=== PATIENT | male | born 1965 | race Caucasian/White ===

== ENCOUNTER 2019-12-09 16:24 | Emergency (ER) | payer BC, SELFPAY ==
--- NOTE | ~2019-12-09 | XR_ITS ---
EXAMINATION: XR chest 1V portable EXAM DATE: 12/09/2019 16:38 INDICATION: Dizzy spells/shortness of breath. TECHNIQUE: Portable AP frontal chest x-ray was obtained. Comparison is made to prior examination from 01/31/2020. FINDINGS: The lungs are clear. There are no pleural effusions. The cardiomediastinal silhouette is within normal limits. There is no pneumothorax suspected. The bones and soft tissues are unremarkab le. IMPRESSION: No acute cardiopulmonary findings. Reviewed, dictated and finalized at location A. [employer]
--- NOTE | 2019-12-09 16:26 | ECG_ITS ---
Measurements Intervals [place] Rate: 84 P: 2 [place]: 183 QRS: -7 QRSD: 102 T: 28 QT: 380 QTc: 450 Interpretive Statements SINUS RHYTHM VOLTAGE CRITERIA FOR LVH BASELINE ARTIFACT- II, III BORDERLINE ECG Electronically Signed On 12-09-2019 19:49:53 ZONING ENGINEER by Alfie Conte D.O.
[2019-12-09 16:27] VITALS: BP 158/92; PULSE 84; RESP 20; TEMP 36.5; O2SAT 99
[2019-12-09 16:44] LABS: Basophils Absolute Auto 0.1 K/mm3 (0.0-0.1); Basophils Percent Auto 0.8 % (0.2-1.2); Eosinophils Absolute Auto 0.2 K/mm3 (0-0.3); Eosinophils Percent Auto 1.8 % (0-4.4); Hemoglobin 16.5 g/dL (14.0-18.0); Immature Granulocyte Absolute 0.03 K/mm3 (0.00-0.031); Immature Granulocyte Percent A 0.3 % (0-0.5); Lymphocytes Absolute Auto 2.15 K/mm3 (0.9-3.2); Lymphocytes Percent Auto 24.7 % (18.3-44.2); Mean Corpuscular HGB Conc 33.7 g/dl (32-36); Mean Corpuscular Volume 92.1 fl (80-100); Mean Platelet Volume 10.9 fl (7.4-10.4); Monocytes Absolute Auto 0.6 K/mm3 (0.1-0.6); Monocytes Percent Auto 7.2 % (2.6-8.5); Neutrophils Absolute Auto 5.7 K/mm3 (1.3-6.7); Neutrophils Percent Auto 65.2 % (45.5-73.1); Platelet Count Result 244 k/mm3 (150-375); Red Blood Count 5.32 M/mm3 (4.6-6.20); Red Cell Distribution Width 13.5 % (11.5-14.5); White Blood Count 8.7 K/mm3 (4.5-10.0)
[2019-12-09 16:54] LABS: INR 0.9; Prothrombin Time 11.8 Seconds (11.1-14.7)
[2019-12-09 16:55] LABS: Blood Urea Nitrogen 28 mg/dL (9-20); Calcium 9.3 mg/dL (8.4-10.2); Carbon Dioxide 26 mmol/L (22-30); Chloride 100 mmol/L (98-107); Estimated CRCL calculation 72 ml/min; Estimated Glomerular Filt Rate 57; Glucose 111 mg/dL (75-110); Partial Thromboplastin Time 26.2 SECONDS (22.3-36.8); Potassium 3.5 mmol/L (3.4-5.0); Sodium 139 mmol/L (137-145)
[2019-12-09 17:06] LABS: Troponin I < 0.012 ng/mL (0.000-0.034)
[2019-12-09 17:26] VITALS: BP 157/101; PULSE 85; PULSE 86; RESP 16; RESP 18; TEMP 36.6; O2SAT 94
[2019-12-09 17:33] VITALS: BP 157/101; PULSE 75; RESP 23; O2SAT 95
--- NOTE | 2019-12-09 17:37 | ED.NEUROSD ---
HPI - Neuro Symptoms/Deficit General Chief Complaint: Suspected CVA Stated Complaint: sent from imaging center, cva? Time Seen by Provider: 12/09/19 17:35 Source: patient and RN notes reviewed Mode of arrival: ambulatory Limitations: no limitations History of Present Illness HPI Narrative: Pt is a 54 y/o male presenting to the ED c/o possible CVA. Pt reports he had the results of an MRI today and was instructed by his Neurologist at [facility], Dr. Murrieta, to present to the nearest ED. Pt reports he has been experiencing dizziness for a year that has increased in frequency to about 2 to 3 times per week as of the past 2 weeks, and also reports nausea and hot flashes, but denies weakness, numbness, tingling, DURON, or vomiting. Pt states he only takes medication for HTN, and denies a Hx of DM, HLD, or smoking. MR Brain WO contrast taken at [facility] on 12/09/2019. IMPRESSION by Radiologist Eric Mar: 1. Acute small left thalamic stroke. 2. Patchy areas of signal alteration in the periventricular white matter suggesting chronic microvascular change/gliosis. Other items on the differential would include demyelinating process, post inflammatory, infectious or toxic exposures. Please correlate clinically. MRA Head WO contrast taken at [facility] on 12/09/2019. IMPRESSION by Radiologist Hiram Worthy: 1. 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 Onset (ago): unknown Quality: weak (Dizziness) and other On Anticoagulants: No Associated symptoms: nausea/vomiting (Nausea, no vomiting) and other (Dizziness; hot flashes) Treatments Prior to Arrival: none Related Data Home Medications Medication Instructions Recorded Confirmed naproxen sodium 220 mg tablet 220 mg PO DAILY PRN tablet 11/11/19 Allergies Allergy/AdvReac Type Severity Reaction Status Date / Time No Known Allergies Allergy Unverified 11/11/19 09:24 Review of Systems Review of Systems: All systems reviewed & are unremarkable except as noted in HPI and below Constitutional: Constitutional: Reports other (Hot flashes) Gastrointestinal: Gastrointestinal: Reports nausea and Denies vomiting Neurologic: Reports dizziness, Denies headache(s), Denies numbness, Denies tingling and Denies weakness PMFSH Past Medical History Medical History Arthritis Chronic neck pain Essential (primary) hypertension Hypertension Surgical History Surgical History History of hernia surgery 2000 [place] teeth extracted age mid 20's Family History Family History Father Hypertension Mother Hypertension COPD (chronic obstructive pulmonary disease) Social History Social History Smoking status: Never smoker Second hand tobacco smoke exposure: Yes (occasionally) Alcohol intake: current Substance use: never Substance use type: does not use Gender identity (if verbalized by the patient): Male Exam Narrative: Exam Narrative: General appearance: Well-developed, well-nourished Skin: Normal color Head: Normocephalic, nontraumatic Eyes: Clear conjunctiva ENT: Oropharynx normal, ears normal, nose normal Neck: Supple, nontender Chest and respiratory: Airway patent, no respiratory distress, no accessory muscle use Heart: Regular rate/rhythm Abdomen: Soft, nontender, no organomegaly, quiet bowel sounds Vascular: Normal peripheral pulses, normal capillary refill. Musculoskeletal: Normal range of motion, nontender back Neurologic: Alert and oriented ?3, TRUCK RENTAL MANAGER is normal as tested, no gross motor deficit
[2019-12-09 17:43] LABS: Glucose Point of Care 116 (65-105)
[2019-12-09 18:42] VITALS: BP 138/88; PULSE 72; RESP 19; O2SAT 100
== END 2019-12-09 18:42 | disposition home or self-care (01) ==
PROVIDERS: Emergency Provider Emergency Medicine; PCP Family Medicine
DX: I63.9 Cerebral infarction, unspecified (principal); I10 Essential (primary) hypertension; M19.90 Unspecified osteoarthritis, unspecified site; R94.31 Abnormal electrocardiogram [ECG] [EKG]
CPT/HCPCS: 36415; 71045; 80048; 82948; 84484; 85025; 85610; 85730; 93005; 99284

== ENCOUNTER 2020-01-10 13:05 | Outpatient (CLI) | payer BC, SELFPAY ==
--- NOTE | 2020-01-10 | ECHO_ITS ---
Patient Info Name: Demetris Moore Age: 54 years : 1965 Gender: Male Ht: 71 in Wt: 242 lbs BSA: 2.38 m2 HR: 65 bpm BP: 140 / 95 mmHg Heart Rhythm: Sinus Rhythm Technical Quality: Good Exam Date: 01/10/2020 1:58 PM Exam Location: [facility] Patient Status: Outpatient Admit Date: 01/10/2020 Staff Ordering Physician: Lit, Rich Palafox MD Maintenance Helper: Demetris Patel RDCS Attending Provider: Lit, Rich Palafox MD Referring Physician: Lit CARR; Exam Type: CA echo doppler color flow Study Info Indications 436.0 - CVA Complete two-dimensional, color flow and Doppler transthoracic echocardiogram is performed. Strain analysis performed. History/Risk Factors CVA and Dizziness. Summary 1. Left ventricular chamber dimension is normal. 2. Left ventricular systolic function is normal, estimated at 60-65%. 3. There is moderately increased left ventricular wall thickness. 4. The left ventricular diastolic function is abnormal. 5. E/e' 12 is mildly elevated. 6. Global longitudinal strain is mildly abnormal at -15.8%. 7. There is trace mitral valve regurgitation. 8. No pulmonary hypertension, estimated pulmonary arterial systolic pressure is 30 mmHg. 9. There is trace pulmonic regurgitation. 10. The aortic root size at the sinus of Valsalva is borderline dilated at 4.1 cm. Left Ventricle E/e' 12 is mildly elevated. Global longitudinal strain is mildly abnormal at -15.8%. Left ventricular chamber dimension is normal. Left ventricular systolic function is normal, estimated at 60-65%. There is moderately increased left ventricular wall thickness. The left ventricular diastolic function is abnormal. Right Ventricle Right ventricular chamber dimension is normal. Right ventricular systolic function is normal. Left Atria Left atrial chamber dimension is normal. Right Atria Right atrial chamber dimension is normal. Aortic Valve The aortic valve is probable trileaflet. There is no aortic valve stenosis. There is no aortic valve regurgitation. Pulmonic Valve There is trace pulmonic regurgitation. Mitral Valve There is no mitral valve stenosis. There is trace mitral valve regurgitation. Tricuspid Valve There is no tricuspid valve regurgitation. No pulmonary hypertension, estimated pulmonary arterial systolic pressure is 30 mmHg. Pericardium/Pleural There is no pericardial effusion. Inferior Vena Cava Normal inferior vena cava with >50% collapse upon inspiration consistent with normal right atrial pressure, 5 mmHg. Aorta The aortic root size at the sinus of Valsalva is borderline dilated at 4.1 cm. Left Ventricular Outflow Tract Name Value Normal LVOT 2D LVOT Diameter 1.9 cm LVOT Doppler LVOT Peak Gradient 4 mmHg LVOT Mean Gradient 2 mmHg LVOT VTI 22 cm LVOT VTI/AV VTI Ratio 0.8 LVOT Stroke Volume 61 ml LVOT CO 4.1 l/min LVOT CI
--- NOTE | ~2020-01-10 | US_ITS ---
EXAMINATION: US carotid duplex BI DATE: 01/10/2020 13:44 INDICATION: Cerebrovascular accident. Dizziness. TECHNIQUE: Grayscale, color Doppler, and pulsed Doppler images of the cervical carotid arteries were obtained. The degree of vessel stenosis is placed in one of the following categories: normal, <50%, 5 0-69%, >=70% but less than near-occlusion, near-occlusion, or total occlusion. Note that percent sten osis relative to normal distal artery lumen diameter is indirectly measured from velocity measurement s as described by Juarez, et al. Radiology 2003; 229:340-346. COMPARISON: None. FINDINGS: RIGHT: The right common carotid artery (CCA) peak systolic velocity (PSV) is 86 cm/s. The right internal car otid artery (ICA) PSV is 56 cm/s. The right ICA end-diastolic velocity (EDV) is 20 cm/s. The right IC A/CCA PSV ratio is 0.7. Grayscale and color Doppler images yield an estimate of <50% diameter reducti on from plaque in the ICA. There is antegrade flow in the right vertebral artery. LEFT: The left CCA PSV is 101 cm/s. The left ICA PSV is 74 cm/s. The left ICA EDV is 29 cm/s. The left ICA/ CCA PSV ratio is 0.7. Grayscale and color Doppler images yield an estimate of <50% diameter reduction from plaque in the ICA. There is antegrade flow in the left vertebral artery. IMPRESSION: 1. <50% stenosis in the right internal carotid artery. 2. <50% stenosis in the left internal carotid artery. Reviewed, dictated and finalized at location A.
--- NOTE | 2020-01-12 18:40 | WPDHOLTEREM ---
Holter/Event Monitor Holter/Event Monitor Date of procedure: 01/10/20 Procedure Type: 24 hour Holter monitor Diagnosis: Dizziness, HTN,recent stroke Indications: Dizziness, HTN, recent stroke Image/Tracing Quality: Good Finding: the patient was monitored for 20 hours. The underlying rhythm was sinus with a minimum heart rate of 57 beats per minute, average heart rate of 88 beats per minute maximum rate of 153 beats per minute. There were no PVCs seen. For APCs were seen. There is no atrial fibrillation, SVT, ventricular tachycardia, pauses or heart block. No symptoms were recorded. . Conclusion: Unremarkable Holter monitor No atrial fibrillation seen
== END 2020-01-10 13:06 | disposition home or self-care (01) ==
PROVIDERS: PCP Family Medicine; Visit Provider Psychiatry & Neurology Neurology
DX: I63.549 Cerebral infarction due to unspecified occlusion or stenosis of unspecified cerebellar artery (principal); R42 Dizziness and giddiness; Z79.899 Other long term (current) drug therapy; I65.23 Occlusion and stenosis of bilateral carotid arteries; R93.1 Abnormal findings on diagnostic imaging of heart and coronary circulation
CPT/HCPCS: 93225; 93226; 93306; 93880

== ENCOUNTER 2022-05-15 12:03 | Outpatient (CLI) | payer BC, SELFPAY ==
--- NOTE | 2022-05-15 | ECG_ITS ---
Measurements Intervals [place] Rate: 66 P: -11 [place]: 190 QRS: -4 QRSD: 105 T: 17 QT: 420 QTc: 442 Interpretive Statements SINUS RHYTHM VOLTAGE CRITERIA FOR LVH BORDERLINE ECG Electronically Signed On 05-15-2022 13:00:48 CDT by Alfie Conte D.O.
[2022-05-15 12:36] LABS: Hematocrit 45.5 % (42.0-52.0); Hemoglobin 14.9 g/dL (14.0-18.0)
[2022-05-15 12:49] LABS: Albumin Level 4.2 g/dL (3.5-5.1); Estimated Glomerular Filt Rate 52; Glucose 95 mg/dL (65-110)
[2022-05-15 12:50] LABS: Urine Cotinine NEGATIVE
[2022-05-15 13:17] LABS: Hemoglobin A1C 5.5 % (<5.7)
== END 2022-05-15 12:04 | disposition home or self-care (01) ==
PROVIDERS: PCP Family Medicine; Visit Provider Orthopaedic Surgery
DX: Z01.818 Encounter for other preprocedural examination (principal); M17.12 Unilateral primary osteoarthritis, left knee
CPT/HCPCS: 80307; 82040; 82565; 82947; 83036; 85014; 85018; 93005

== ENCOUNTER 2022-07-17 09:50 | Outpatient (CLI) | payer BC, SELFPAY ==
[2022-07-17 11:03] LABS: Basophils Absolute Auto 0.1 K/mm3 (0.0-0.1); Basophils Percent Auto 0.8 % (0.2-1.2); Eosinophils Absolute Auto 0.1 K/mm3 (0-0.3); Eosinophils Percent Auto 1.9 % (0-4.4); Hematocrit 47.8 % (42.0-52.0); Immature Granulocyte Absolute 0.01 K/mm3 (0.00-0.031); Immature Granulocyte Percent A 0.1 % (0-0.5); Lymphocytes Absolute Auto 1.63 K/mm3 (0.9-3.2); Lymphocytes Percent Auto 21.6 % (18.3-44.2); Mean Corpuscular HGB Conc 33.5 g/dl (32-36); Mean Corpuscular Hemoglobin 31.6 pg (26-34); Mean Corpuscular Volume 94.5 fl (80-100); Mean Platelet Volume 10.6 fl (7.4-10.4); Monocytes Absolute Auto 0.5 K/mm3 (0.1-0.6); Monocytes Percent Auto 6.9 % (2.6-8.5); Neutrophils Absolute Auto 5.2 K/mm3 (1.3-6.7); Neutrophils Percent Auto 68.7 % (45.5-73.1); Platelet Count Result 236 k/mm3 (150-375); Red Blood Count 5.06 M/mm3 (4.6-6.20); Red Cell Distribution Width 13.9 % (11.5-14.5); White Blood Count 7.5 K/mm3 (4.5-10.0)
[2022-07-17 11:11] LABS: Albumin Level 4.1 g/dL (3.5-5.1)
[2022-07-17 11:14] LABS: Anion Gap 11 mmol/L (8-16); Blood Urea Nitrogen 21 mg/dL (9-20); Calcium 8.9 mg/dL (8.4-10.2); Carbon Dioxide 25 mmol/L (22-30); Chloride 107 mmol/L (98-107); Estimated Glomerular Filt Rate 52; Glucose 121 mg/dL (65-110); Potassium 3.5 mmol/L (3.4-5.0); Sodium 143 mmol/L (137-145)
[2022-07-17 12:01] LABS: Urine Cotinine NEGATIVE
== END 2022-07-17 09:51 | disposition home or self-care (01) ==
PROVIDERS: Anesthesiology; PCP Family Medicine; Visit Provider Orthopaedic Surgery
DX: M17.12 Unilateral primary osteoarthritis, left knee (principal); Z79.899 Other long term (current) drug therapy; Z01.818 Encounter for other preprocedural examination
CPT/HCPCS: 36415; 80048; 80307; 82040; 85025; 87081

== ENCOUNTER 2022-08-06 00:42 | Day surgery (SDC) | payer BC, SELFPAY ==
--- NOTE | 2022-07-17 09:58 | PC.NURSE ---
PRE-OP INSTRUCTIONS, PLEASE READ CAREFULLY Report to the Outpatient Waiting Room, entrance under the green pavilion located off [facility], at time _0600_ on date _08/06/22_. OR Time: _0730_. PACK A SMALL OVERNIGHT BAG AND LEAVE IN THE CAR ALONG WITH YOUR WALKER Time changes happen often and if your time is changed the preop area will call you the afternoon before. - You and your visitor will be asked to self-screen and do not enter if you have any COVID symptoms. - A mask is required within the hospital. - Only one visitor and NO children visitors are allowed at this time. - The patient visitor is requested to leave or wait in car when not with patient due to restrictions. - VISITING HOURS 10AM-8PM, PARK IN FRONT PARKING LOT AND USE HOSPITAL ENTRANCE 1 Patients may have clear liquids (water, carbonated beverages, clear teas, apple juice) until 3 hours prior to surgery (0430 AM) with a maximum of 20 ounces. - No food from midnight until time of surgery Take the following medications with a SIP of water the morning of surgery: _AMLODIPINE, METOPROLOL_ Medications to discontinue per DR. ROCKWELL - _ASPIRIN 7 DAYS PRIOR TO SURGERY, Date to take last dose 07/29/22_ Please no make-up, nail syriac, hairspray, perfume, deodorant, or body powder the day of surgery. No jewelry (including any body piercings) or valuables the day of surgery, leave them at home. Please take a shower or bath the night before, or the morning of, surgery with an antibacterial soap. Wear comfortable, loose fitting clothing. - Jewelry must be removed prior to entering the operating room. Rings and piercings that are not removed may be cut off. - The hospital will not accept responsibility for valuables. - Please leave all valuables, including medications, at home the day of surgery. If you are going home after surgery, a licensed lifter driver must drive you home. - NO public transportation without another adult. - We recommend that an adult stay with you for 24 hours following discharge. - We also recommend that you do not drive, make important decision, drink alcoholic beverages, or take any drugs that were not prescribed by your health care provider for at least 24 hours after your discharge time. Follow any additional instructions given to you from your surgeon. TOTAL JOINT CLASS 07/24/22 @ 1000 AM [facility], PARK IN FRONT PARKING LOT AND USE HOSPITAL ENTRANCE 2 - LOWER LEVEL If you or anyone in your household have experienced Covid symptoms in the past week, please notify your surgeon or the nurse liaison at the phone number below for possible testing. Telephone instructions given to ___PT and asked if any additional questions and then verbalized understanding. Patient advised to call surgeon office or pre surgery nurse liaison [phone] if any additional questions.
[2022-07-17 10:15] VITALS: BP 118/80; PULSE 92; RESP 20; TEMP 37.3; O2SAT 96; BMI 35.3
--- NOTE | 2022-08-05 12:39 | WPDANESPNB ---
Anes - Peripheral Nerve Block Date/Time: 08/05/22 12:39 I have discussed with the patient/family/POA the placement of a peripheral nerve block for post-operative pain management, including associated risks, benefits, complications, and side effects. Alternative methods of post-operative analgesia were detailed. Questions were solicited and answers provided to the satisfaction of the patient/family/POA. Time-Out: A pre-procedural Time-Out was completed immediately before starting the procedure and confirmed: Patient Identification, Site, Procedure, Patient Position and the Availability of Requisite Equipment. Clinical Indications: Acute post-operative pain management requested by the operative surgeon. Nerve Block Insertion Note Anes-nerve block: adductor canal Patient position: supine Skin prep: chlorhexidine Needle: 22 gauge, stimulating, insulated echogenic needle. Needle length: 80 mm Technique: ultrasound Technique comment: in plane Injectate: bupivacaine 0.5% with epi 5 mcg/ml (30cc) Observations: tolerated well Complications: none Procedure start time:: 720 Procedure end time:: 725
--- NOTE | 2022-08-05 12:39 | WPDANESEPPF ---
Anes - Initial Pre Proc Eval Procedure: Operation Date: 08/06/22 07:30 Proposed Procedures p Left Total Knee Arthroplasty - Zen Trejo MD Date/Time: 08/05/22 12:39 Surgeon: Zen Trejo MD Pre Op Diagnosis: primary oa left knee Patient Data Age: 57 Gender: M Height: 1.8 m Weight: 115 kg Last Vital Signs Temp 37.3 C 07/17/22 10:15 Pulse 92 07/17/22 10:15 Resp 20 07/17/22 10:15 BP 118/80 07/17/22 10:15 Pulse Ox 96 07/17/22 10:15 O2 Del Method Room Air 07/17/22 10:15 Allergies Allergy/AdvReac Type Severity Reaction Status Date / Time No Known Allergies Allergy Verified 08/06/22 06:21 Home Medications Medication Instructions Recorded Confirmed Type aspirin 325 mg tablet 325 mg PO DAILY #30 tabs 12/09/19 08/06/22 Rx amlodipine 10 mg tablet 10 mg PO DAILY #90 tabs 02/27/22 08/06/22 Rx losartan 100 1 tablet PO DAILY #90 tabs 02/27/22 08/06/22 Rx mg-hydrochlorothiazide 25 mg tablet metoprolol succinate 50 mg 50 mg PO DAILY #90 tabs 04/03/22 08/06/22 Rx tablet,extended release 24 hr doxazosin 4 mg tablet 4 mg QAM 07/17/22 08/06/22 History Patient hx anesthesia problems: none Family hx anesthesia problems: none Results Review: All pre-operative results and documents have been reviewed as part of the pre-operative evaluation. [facility] Past Medical History Medical History (Updated 08/05/22 @ 12:40 by Haja Osorio MD) BPH (benign prostatic hyperplasia) Chronic neck pain Essential (primary) hypertension History of ischemic vertebrobasilar artery thalamic stroke Obesity Osteoarthritis TIA (transient ischemic attack) Vitamin D deficiency Surgical History Surgical History History of hernia surgery 1999 right inguinal hernia repair [place] teeth extracted age mid 20's Family History Family History Father Hypertension Mother Hypertension COPD (chronic obstructive pulmonary disease) Social History Social History Smoking status: Never smoker Second hand tobacco smoke exposure: Yes (OCCASIONALLY WHEN OUT WITH FRIENDS) Additional smoking assessment comments: PT DENIES ALL FORMS OF TOBACCO USE Alcohol intake: current Drinks per week: 6 Alcohol use details: consumes 3/4 beers, twice a week Substance use: never Substance use type: does not use Living arrangements: alone Gender identity (if verbalized by the patient): Male Spiritual care concerns: No Agree to blood products: Yes Anes - Eval Final PreProcedure Day of Procedure 08/05/22 12:39 Patient weight: obese Heart: regular rate and rhythm Lungs: clear to auscultation and normal air movement Airway: Mallampati scale class II Neurological: alert and oriented Last oral intake: >/= 8 hours ASA classification: III Emergent: no Anesthetic plan: proceed Anesthesia type and monitoring: general LMA Results Review: All pre-operative results and documents have been reviewed as part of the pre-operative evaluation. Informed Consent: The patient's anesthetic plan and its attendant risks and benefits were discussed with the patient/family/POA. Questions were solicited and answers provided to the satisfaction of the patient/family/POA.
[2022-08-06] VITALS (13 sets, daily range): BP systolic 102–169; BP diastolic 75–114; PULSE 72–88; RESP 15–20; TEMP 35.9–37.2; O2SAT 94–98
--- NOTE | ~2022-08-06 | XR_ITS ---
EXAMINATION: XR knee LT 2V DATE: 08/06/2022 09:55 INDICATION: Postoperative evaluation following left total knee arthroplasty. TECHNIQUE: Anteroposterior and lateral views of the left knee were obtained. COMPARISON: 01/14/2022 FINDINGS: Left total knee arthroplasty with patellar resurfacing appears well seated and in near anatomic align ment. No fractures identified. Expected postoperative subcutaneous and intra-articular gas. IMPRESSION: 1. Left total knee arthroplasty, negative for postoperative purposes. Reviewed, dictated and finalized at location A.
[2022-08-06] MEDS: LACTATED RINGERS 1,000 ML 30 ML IV CONT ×2 (06:35→09:36)
[2022-08-06] MEDS: ACETAMINOPHEN 500 MG TABLET 1000 MG PO (06:40)
[2022-08-06] MEDS: TRANEXAMIC ACID 1,000MG/ISO100 1,000 MG/100 ML BAG 200 MG IVPB (06:40)
--- NOTE | 2022-08-06 07:22 | WPDHPUPDATE1 ---
History and Physical Update Update Date/Time: 08/06/22 07:22 History and Physical has been reviewed, including an updated exam of the patient. There are NO changes in the patient's condition. Risks, benefits, and alternatives have been discussed and questions answered. Patient agrees to proceed with procedure.
[2022-08-06] MEDS: ceFAZolin 2 GM/D5W 50 ML 2 GM/50 ML BAG IVPB ×3 (07:34→23:07)
[2022-08-06] MEDS: GENTAMICIN BONE CEMENT REFOBACIN 1 EACH TOPICAL (08:08)
--- NOTE | 2022-08-06 10:51 | ADMGEN ---
This patient, Demetris Moore, was admitted to -. Patient/family oriented to hospital policies and general routines including ID bracelet, bed and alarms, visiting hours, pain management, procedures, bathroom and other care routines, personal items, smoking policy, room service/diet, and visiting hours. Information on how to activate the Rapid Response Team has been discussed. Patient/Family are encouraged to report perceived risks to care and to ask questions if they do not understand what they are told or what they should do.
[2022-08-06] MEDS: METOPROLOL SUCCINATE EXT REL 50 MG TABCR PO (12:17)
[2022-08-06] MEDS: polyethylene glycoL 3350 17 GM POWD.PACK PO (12:17)
[2022-08-06] MEDS: SENNA/DOCUSATE SODIUM TABLET 2 TAB PO ×2 (12:18→21:08)
[2022-08-06] MEDS: ASPIRIN 325 MG TABLET PO (12:18)
[2022-08-06] MEDS: LOSARTAN POTASSIUM 100 MG TABLET PO (12:18)
[2022-08-06] MEDS: amLODIPine BESYLATE 5 MG TABLET 10 MG PO (12:18)
[2022-08-06] MEDS: DOXAZOSIN MESYLATE 4 MG TABLET PO (12:18)
[2022-08-06] MEDS: FAMOTIDINE 20 MG TABLET PO ×2 (12:18→21:08)
[2022-08-06] MEDS: hydroCHLOROthiazide 25 MG TABLET PO (12:18)
[2022-08-06] MEDS: oxyCODONE HCL (*CRX) 5 MG TAB IR PO (13:47)
--- NOTE | 2022-08-06 16:04 | W.PM.PROC2 ---
Procedure Note - Detailed Date of Procedure 08/06/22 Pre-op Diagnosis primary oa left knee Post-op Diagnosis Same Procedure Performed Total knee arthroplasty, left knee. Surgeon Zen Trejo MD Weekend Receptionist Louann Rodriguez PA-C Anesthesia General and Regional (subsartorial block) Description of Procedure The patient was given a nerve block preoperatively, and then brought to the operating room. A general anesthetic was administered. The leg was prepped and draped in the usual sterile fashion. The limb was elevated and the tourniquet inflated to 300 mmHg during initial exposure, and cementation. A longitudinal incision was created along the medial border of the patella and patellar tendon, and a trivector approach to the knee was performed. A moderate medial release was taken. The knee was then flexed. The osteophytes were carefully removed. The intramedullary guide was placed in the femoral canal. The distal femoral resection was then taken with the oscillating saw. The collateral ligaments were carefully protected. The tibia was carefully exposed. The jig was applied, and the proximal tibia was resected according to preoperative plan. The knee was balanced in extension. Appropriate releases were taken where needed. The anterior cruciate ligament and meniscal remnants were removed. The posterior cruciate ligament was preserved. The patella was measured. Patellar resection was carried out with the oscillating saw. The lug holes drilled. The femur was sized and rotation assessed using a combination of gap balancing, posterior referencing, and the AP axis. The 4 in 1 cutting block was used to finish the femoral cuts after equal gaps were assured. The lug holes were drilled. The osteophytes were carefully removed from the back of the knee. The knee was copiously irrigated with antibiotic solution periodically throughout the procedure. The meniscal remnants were removed. The spacer block was used to confirm equal flexion and extension gaps. Further releases were performed as needed. The tibia was sized and broached. The bony surfaces were prepared for cementing with pulsatile lavage. The real tibial component was cemented into position followed by press fitting the femoral component. Excess cement was carefully removed. The patella component was press-fit. Patellar tracking was carefully assessed. No additional releases were required. The wound was closed with #1 Vycril suture, #2 Quill suture, 0-Quill suture, and 2-0 Quill suture followed by Steri-Strips. A sterile bulky dressing was applied. Meticulous hemostasis was maintained throughout the procedure. There were no complications. The patient was extubated and brought to the recovery room in stable condition after the application of sterile dressing with Donovan bandage. Physician sound assistant, Louann Rodriguez PA-C, required for surgery; including patient positioning, draping, tissue retraction, maintaining instrument position, cement removal, wound closure, and dressing placement. Implants [employer] Triathlon knee system, low profile cemented tibia size 6, Press-Fit cruciate retaining femoral component size 6,and an 13 mm cruciate retaining polyethylene insert. 38mm asymmetric metal-backed patella component. Estimated Blood Loss -100.0 Drains No Pathology None sent Complications No immediate complications Condition Stable Disposition PACU [facility] Billing Surgery - Charge Forward: Surgery Billing
[2022-08-06] MEDS: MELOXICAM 7.5 MG TABLET PO (18:36)
[2022-08-07 00:31] VITALS: BP 124/81; PULSE 65; RESP 18; TEMP 37.3; O2SAT 93
[2022-08-07 06:00] LABS: Basophils Percent Auto 0.3 % (0.2-1.2); Eosinophils Percent Auto 0.3 % (0-4.4); Hematocrit 43.8 % (42.0-52.0); Hemoglobin 14.5 g/dL (14.0-18.0); Immature Granulocyte Absolute 0.04 K/mm3 (0.00-0.031); Immature Granulocyte Percent A 0.3 % (0-0.5); Lymphocytes Absolute Auto 1.48 K/mm3 (0.9-3.2); Lymphocytes Percent Auto 9.9 % (18.3-44.2); Mean Corpuscular HGB Conc 33.1 g/dl (32-36); Mean Corpuscular Hemoglobin 32.1 pg (26-34); Mean Corpuscular Volume 96.9 fl (80-100); Monocytes Absolute Auto 1.3 K/mm3 (0.1-0.6); Monocytes Percent Auto 8.8 % (2.6-8.5); Neutrophils Absolute Auto 12.1 K/mm3 (1.3-6.7); Neutrophils Percent Auto 80.4 % (45.5-73.1); Platelet Count Result 193 k/mm3 (150-375); Red Blood Count 4.52 M/mm3 (4.6-6.20); Red Cell Distribution Width 13.9 % (11.5-14.5)
[2022-08-07 06:05] LABS: Anion Gap 9 mmol/L (8-16); Blood Urea Nitrogen 26 mg/dL (9-20); Calcium 8.3 mg/dL (8.4-10.2); Carbon Dioxide 25 mmol/L (22-30); Chloride 102 mmol/L (98-107); Estimated CRCL calculation 61 ml/min; Estimated Glomerular Filt Rate 48; Glucose 109 mg/dL (65-110); Potassium 3.3 mmol/L (3.4-5.0); Sodium 136 mmol/L (137-145)
[2022-08-07] MEDS: ceFAZolin 2 GM/D5W 50 ML 2 GM/50 ML BAG IVPB (07:15)
[2022-08-07] MEDS: oxyCODONE HCL (*CRX) 5 MG TAB IR PO (07:21)
[2022-08-07] MEDS: MELOXICAM 7.5 MG TABLET PO (07:53)
[2022-08-07] MEDS: ASPIRIN 325 MG TABLET PO (07:53)
[2022-08-07] MEDS: LOSARTAN POTASSIUM 100 MG TABLET PO (07:53)
[2022-08-07] MEDS: DOXAZOSIN MESYLATE 4 MG TABLET PO (07:53)
[2022-08-07 07:54] VITALS: PULSE 74
[2022-08-07] MEDS: hydroCHLOROthiazide 25 MG TABLET PO (07:54)
[2022-08-07] MEDS: METOPROLOL SUCCINATE EXT REL 50 MG TABCR PO (07:54)
[2022-08-07] MEDS: amLODIPine BESYLATE 5 MG TABLET 10 MG PO (07:54)
[2022-08-07] MEDS: FAMOTIDINE 20 MG TABLET PO (07:54)
[2022-08-07] MEDS: SENNA/DOCUSATE SODIUM TABLET 2 TAB PO (07:54)
[2022-08-07] MEDS: predniSONE 5 MG TABLET PO (07:54)
[2022-08-07] MEDS: polyethylene glycoL 3350 17 GM POWD.PACK PO (07:55)
--- NOTE | 2022-08-07 08:20 | PM.DS ---
DS: Admitting Diagnosis Discharge Date 08/07/22 Admitting Diagnosis OA knee Left DS: Discharge Diagnosis Discharge Diagnosis (1) Status post total left knee replacement: Code(s): Z96.652 - Presence of left artificial knee joint Status: Acute Assessment and Plan: Postop day 1: Left total Knee arthroplasty. Patient tolerated procedure well. No complications. Pain manageable with pain medication. No numbness or tingling. We had a lengthy discussion regarding postoperative wound care, limitations, expectations, and exercises. Patient shows good understanding. He has had initial physical therapy and is tolerating it well. DVT prophylaxis: Continue home aspirin dose. Pain medication: Percocet. Prednisone. Meloxicam. Patient has followup appointment with Dr. Trejo in 3 weeks. DS: Summary Hospital Course Reason for hospitalization: Total knee arthroplasty Hospital Course: Patient tolerated procedure well. Has had initial PT/OT. Status at Discharge Functional status at discharge: uses cane/walker Overall status at discharge: patient is progressing back to baseline Time Spent with Patient Time attestation: Total time spent providing and/or coordinating discharge services: Exam Narrative: 57-year-old overweight male. Resting comfortably in chair. Alert and oriented x3. No acute distress. Wearing compression socks bilaterally. Dressing intact with no drainage. Mild swelling. No ecchymosis. No erythema. No hematoma. Range of motion limited due to pain. 10-80. Calf nontender. Neurologic status intact. No varicosities. Distal pulses palpable. DS: Data Data Completed and Pending Labs on day of discharge: Labs from last 24 hours 08/07/22 08/07/22 05:41 05:41 WBC 15.0 H RBC 4.52 L Hgb 14.5 Hct 43.8 MCV 96.9 MCH 32.1 MCHC 33.1 RDW 13.9 Plt Count 193 MPV 11.0 H Immature Gran % (Auto) 0.3 Neut % (Auto) 80.4 H Lymph % (Auto) 9.9 L [place] % (Auto) 8.8 H Eos % (Auto) 0.3 Baso % (Auto) 0.3 Lymph # (Auto) 1.48 [place] # (Auto) 1.3 H Eos # (Auto) 0.0 Baso # (Auto) 0.0 Abs Immat Gran (auto) 0.04 H Absolute Neuts (auto) 12.1 H Absolute Nucleated RBC 0.0 Nucleated RBC % 0.0 Sodium 136 L Potassium 3.3 L Chloride 102 Carbon Dioxide 25 Anion Gap 9 BUN 26 H Creatinine 1.50 H Estim Creat Clear Calc 61 Estimated GFR 48 L Glucose 109 Calcium 8.3 L Discharge Plan Discharge Patient Disposition: Home, Self-Care Discharge Instructions: See green instruction sheets Patient Instructions: Joint Replacement Surgery (DC) Follow-up/Referrals: Louann Rodriguez PA [[facility]] - Discharge Medications: New meloxicam 15 mg tablet 15 mg PO DAILY Qty: 30 0RF Rx Instructions: Cut in half. Take 1/2 in morning and 1/2 at night. Take with food. Stop if stomach upset. prednisone 5 mg tablet 5 mg PO DAILY 21 Days Qty: 21 0RF oxycodone-acetaminophen 5-325 mg tablet 1 - 2 tablet PO Q4-6H MDD 6 PRN (Reason: pain) Qty: 30 0RF Continued losartan-hydrochlorothiazide 100-25 mg tablet 1 tablet PO DAILY Qty: 90 1RF Label Comments: QAM amlodipine 10 mg tablet 10 mg PO DAILY Qty: 90 1RF Label Comments: QAM metoprolol succinate 50 mg tablet extended release 24 hr 50 mg PO DAILY Qty: 90 0RF Label Comments: QAM aspirin 325 mg tablet 325 mg PO DAILY Qty: 30 0RF Label Comments: QAM doxazosin 4 mg tablet 4 mg QAM
[2022-08-07 08:31] VITALS: BP 102/74; PULSE 65; RESP 16; TEMP 36.6; O2SAT 94
--- NOTE | 2022-08-07 09:27 | WPDANESPN ---
Anes - Prog Note Post-Op Date/Time: 08/07/22 09:27 Cardiovascular status: normal Respiratory status: normal Airway patency: baseline Mental status: baseline Post-Op hydration status: normal Vital Signs: Last Vital Signs Temp 99.1 F 08/07/22 00:31 Pulse 74 08/07/22 07:54 Resp 18 08/07/22 00:31 BP 124/81 08/07/22 00:31 Pulse Ox 93 08/07/22 00:31 O2 Del Method Room Air 08/07/22 08:00 O2 Flow Rate 2 08/06/22 10:55 Pain Score (VAS): 0/10 I/O: Intake & Output 08/06/22 08/07/22 08/07/22 23:59 07:59 15:59 Intake Total 450 250 Balance 450 250 Laboratory Tests 08/07/22 05:41 08/07/22 05:41 08/07/22 08/07/22 05:41 05:41 WBC 15.0 H RBC 4.52 L Hgb 14.5 Hct 43.8 MCV 96.9 MCH 32.1 MCHC 33.1 RDW 13.9 Plt Count 193 MPV 11.0 H Immature Gran % (Auto) 0.3 Neut % (Auto) 80.4 H Lymph % (Auto) 9.9 L [place] % (Auto) 8.8 H Eos % (Auto) 0.3 Baso % (Auto) 0.3 Lymph # (Auto) 1.48 [place] # (Auto) 1.3 H Eos # (Auto) 0.0 Baso # (Auto) 0.0 Abs Immat Gran (auto) 0.04 H Absolute Neuts (auto) 12.1 H Absolute Nucleated RBC 0.0 Nucleated RBC % 0.0 Sodium 136 L Potassium 3.3 L Chloride 102 Carbon Dioxide 25 Anion Gap 9 BUN 26 H Creatinine 1.50 H Estim Creat Clear Calc 61 Estimated GFR 48 L Glucose 109 Calcium 8.3 L Post-procedural complaints: none Patient Feedback: Patient satisfied with anesthetic care.
[2022-08-07 12:00] VITALS: BP 123/80; PULSE 67; RESP 16; TEMP 36.4; O2SAT 96
== END 2022-08-07 12:15 | disposition home or self-care (01) ==
LOC: ANHSURGERY 06:12 → ANH3MEDSUR 10:53
PROVIDERS: Physician Assistant Surgical; PCP Family Medicine; Visit Provider Orthopaedic Surgery
PROC: (CPT 27447; principal; 2022-08-06 07:30)
DX: M17.12 Unilateral primary osteoarthritis, left knee (principal); M25.562 Pain in left knee; G89.18 Other acute postprocedural pain; M25.462 Effusion, left knee; I10 Essential (primary) hypertension; E55.9 Vitamin D deficiency, unspecified; Z79.82 Long term (current) use of aspirin; N40.0 Benign prostatic hyperplasia without lower urinary tract symptoms; M19.90 Unspecified osteoarthritis, unspecified site; Z86.73 Personal history of transient ischemic attack (TIA), and cerebral infarction without residual deficits; E66.9 Obesity, unspecified; Z68.34 Body mass index [BMI] 34.0-34.9, adult
CPT/HCPCS: 27447; 64447; 36415; 73560; 80048; 85025; 86850; 86900; 86901; 97110; 97116; 97161; 97165; 97530; 97535; A9270; C1713; C1776; J0131; J0171; J0690; J1100; J1170; J1885; J2250; J2270; J2405; J2704; J2795; J3010; J7120; J7512

== ENCOUNTER 2022-09-05 15:04 | Outpatient (CLI) | payer BC, SELFPAY ==
--- NOTE | ~2022-09-05 | CT_ITS ---
EXAMINATION: CTA chest PE protocol DATE: 09/05/2022 15:23 INDICATION: Shortness of breath. TECHNIQUE: Computed tomography angiography (CTA) of the chest was performed with 100 mL Omnipaque-350 intravenous contrast timed to evaluate the pulmonary arteries. Coronal maximum intensity projection 3D-reconstructions were created by the technologist. Automated exposure control and iterative reconst ruction technique were employed. The dose-length product was 944.66 mGy-cm. COMPARISON: CT abdomen 09/23/2005 FINDINGS: There is no pneumonia or pleural effusion. The heart size is normal. No pericardial effusio n. There are acute pulmonary emboli in the lower lobes. There is chronic thickening in the adrenal gl ands, likely benign. There is diffuse hepatic steatosis. There is mild thoracic spondylosis. IMPRESSION: 1. Acute pulmonary emboli in the lower lobes. I called this result to Dr. Castrejon. Reviewed, dictated and finalized at location A. IMPRESSION: 1. Acute pulmonary emboli in the lower lobes. I called this result to Dr. Marylin boateng
== END 2022-09-05 15:05 | disposition home or self-care (01) ==
LOC: ANHIMG 15:05
PROVIDERS: PCP Family Medicine; Visit Provider Family Medicine
DX: R06.02 Shortness of breath (principal); I26.99 Other pulmonary embolism without acute cor pulmonale
CPT/HCPCS: 71275; Q9967

== ENCOUNTER 2022-09-09 09:01 | Outpatient (CLI) | payer BC, SELFPAY ==
[2022-09-09 18:49] LABS: Basophils Absolute Auto 0.1 K/mm3 (0.0-0.1); Basophils Percent Auto 0.9 % (0.2-1.2); Eosinophils Absolute Auto 0.2 K/mm3 (0-0.3); Eosinophils Percent Auto 3.5 % (0-4.4); Hematocrit 46.4 % (42.0-52.0); Hemoglobin 14.9 g/dL (14.0-18.0); Immature Granulocyte Absolute 0.01 K/mm3 (0.00-0.031); Immature Granulocyte Percent A 0.1 % (0-0.5); Lymphocytes Absolute Auto 1.36 K/mm3 (0.9-3.2); Lymphocytes Percent Auto 19.8 % (18.3-44.2); Mean Corpuscular HGB Conc 32.1 g/dl (32-36); Mean Corpuscular Hemoglobin 30.7 pg (26-34); Mean Corpuscular Volume 95.7 fl (80-100); Mean Platelet Volume 12.3 fl (7.4-10.4); Monocytes Absolute Auto 0.6 K/mm3 (0.1-0.6); Monocytes Percent Auto 8.9 % (2.6-8.5); Neutrophils Absolute Auto 4.6 K/mm3 (1.3-6.7); Neutrophils Percent Auto 66.8 % (45.5-73.1); Platelet Count Result 216 k/mm3 (150-375); Red Blood Count 4.85 M/mm3 (4.6-6.20); White Blood Count 6.9 K/mm3 (4.5-10.0)
[2022-09-09 19:08] LABS: Hemoglobin A1C 5.6 % (<5.7)
[2022-09-09 19:43] LABS: Alanine Aminotransferase 24 U/L (6-50); Albumin Level 4.2 g/dL (3.5-5.1); Alkaline Phosphatase 88 U/L (38-126); Anion Gap 12 mmol/L (8-16); Aspartate Amino Transferase 22 U/L (17-59); Bilirubin,Total 0.7 mg/dL (0.2-1.3); Blood Urea Nitrogen 23 mg/dL (9-20); Calcium 8.9 mg/dL (8.4-10.2); Carbon Dioxide 26 mmol/L (22-30); Chloride 107 mmol/L (98-107); Cholesterol 147 mg/dL (0-200); Estimated Glomerular Filt Rate 48; Glucose 95 mg/dL (65-110); HDL Direct 44 mg/dL; Potassium 3.4 mmol/L (3.4-5.0); Sodium 145 mmol/L (137-145); Triglycerides 73 mg/dL (<150)
[2022-09-09 19:47] LABS: Vitamin D 25 Hydroxy 30.7 ng/mL
[2022-09-09 20:13] LABS: Prostate Specific Antigen 3.6 ng/mL (< OR = 4.0)
[2022-09-09 21:04] LABS: LDL Cholesterol Direct 79 mg/dL
== END 2022-09-09 09:02 | disposition home or self-care (01) ==
LOC: ANHGOSHLAB 09:05
PROVIDERS: PCP Family Medicine; Visit Provider Family Medicine
DX: Z00.00 Encounter for general adult medical examination without abnormal findings (principal); Z12.5 Encounter for screening for malignant neoplasm of prostate; E55.9 Vitamin D deficiency, unspecified; E78.5 Hyperlipidemia, unspecified; R73.9 Hyperglycemia, unspecified; I10 Essential (primary) hypertension
CPT/HCPCS: 36415; 80053; 80061; 82306; 83036; 84153; 84443; 85025; G0103

== ENCOUNTER 2022-09-09 09:52 | Outpatient (CLI) | payer BC, SELFPAY ==
--- NOTE | ~2022-09-09 | US_ITS ---
EXAMINATION: US venous doppler [facility] DATE: 09/09/2022 10:40 INDICATION: Shortness of breath. Pulmonary embolism. Left lower limb swelling. TECHNIQUE: Grayscale ultrasound images without and with compression and Doppler ultrasound images of the bilateral lower extremity veins were obtained. COMPARISON: None. FINDINGS: The visualized portions of right common femoral vein, profunda (deep) femoral vein, femoral vein, pop liteal vein, posterior tibial veins, peroneal veins, gastrocnemius vein and greater saphenous vein ou tflow are patent. The visualized portions of left common femoral vein, profunda femoral vein, femoral vein, popliteal v ein, posterior tibial veins, peroneal veins, gastrocnemius vein and greater saphenous vein outflow ar e patent. IMPRESSION: 1. No deep venous thrombosis in either lower limb. Reviewed, dictated and finalized at location A. [facility]
== END 2022-09-09 09:53 | disposition home or self-care (01) ==
PROVIDERS: PCP Family Medicine; Visit Provider Family Medicine
DX: I26.99 Other pulmonary embolism without acute cor pulmonale (principal); R06.02 Shortness of breath; T81.89XA Other complications of procedures, not elsewhere classified, initial encounter; Z91.89 Other specified personal risk factors, not elsewhere classified
CPT/HCPCS: 93970

== ENCOUNTER 2023-03-18 09:27 | Outpatient (CLI) | payer BC, SELFPAY ==
--- NOTE | ~2023-03-18 | CT_ITS ---
Clinical Indication: Pulmonary embolus CT Scan of the Chest with Contrast: Technique: Contiguous sections were acquired throughout the chest after intravenous administration of 100 cc of Omnipaque 350. Dose reduction technique was used on this scan by utilizing automated expos ure control and iterative reconstruction technique. The dose-length product (DLP) was 679.53 mGy-cm. COMPARISON: 09/05/2022 Findings: There is no evidence of any significant mediastinal, hilar or axillary lymphadenopathy. There is no f illing defect in the pulmonary arterial tree to suggest pulmonary embolus. There is no evidence of ao rtic dissection or aneurysm. There is no evidence of pleural or pericardial effusion. The lungs are clear. No pulmonary nodules or infiltrates are noted. Images through the upper abdomen reveal no abnormalities. Impression: No evidence of pulmonary embolus, aortic dissection, or aortic aneurysm. Clear lungs. Reviewed, dictated and finalized at [facility]. Impression: No evidence of pulmonary embolus, aortic dissection, or aortic aneurysm. Clear lungs.
== END 2023-03-18 09:28 ==
PROVIDERS: PCP Family Medicine; Visit Provider Family Medicine
DX: I26.99 Other pulmonary embolism without acute cor pulmonale (principal)
CPT/HCPCS: 71275; Q9967

== ENCOUNTER 2024-03-16 18:46 | Emergency (ER) | payer BC, SELFPAY ==
[2024-03-16 19:02] VITALS: BP 128/89; PULSE 87; RESP 16; TEMP 37.3; O2SAT 99
--- NOTE | 2024-03-16 19:30 | ED.GENADULT ---
HPI - General Adult General Chief complaint: Unspecified Stated complaint: BLOOD IN STOOL Time Seen by Provider: 03/16/24 19:10 Source: patient, RN notes reviewed and old records reviewed Mode of arrival: ambulatory Limitations: no limitations History of Present Illness HPI narrative: 58 year old male presents to [facility] care with complaints of noting blood in stool twice today.He reports that early this morning he went to bathroom and he had some bright red blood noted from rectum states less than a tablespoon. Later in the morning he had a bowel movement and he noted small amount of bright red blood in with his stool and he did have to strain with his BM. He stated he called his physician and states was told to either go to ED or go to urgent care and he made an appointment also with his doctor for tomorrow. He states that if he goes to appointment with his doctor he will guerrero, reports that he would have to miss work and he will get dinged on attendance for work.Patient reports no abdominal pain,denies any fevers,chills or any history of hemorrhoids or diverticulitis. MD complaint: reports blood in stool Onset (ago): day(s) (this morning) Treatments prior to arrival: none Related Data Home Medications Medication Instructions Recorded Confirmed cholecalciferol (vitamin D3) 125 125 mcg PO DAILY 09/08/23 03/16/24 mcg (5,000 unit) tablet Allergies Allergy/AdvReac Type Severity Reaction Status Date / Time No Known Allergies Allergy Verified 03/16/24 19:19 Review of Systems Review of Systems: CONSTITUTIONAL: Denies fever, chills, or sweats. EYES: Denies visual changes, redness, or discharge. ENT: Denies rhinorrhea, congestion, sore throat, or otalgia. CARDIOVASCULAR: Denies chest pain, palpitations, or edema. RESPIRATORY: Denies cough or dyspnea. GASTROINTESTINAL: Denies abdominal pain, nausea, vomiting, or diarrhea positive for blood in stool this morning.. GENITOURINARY: Denies dysuria or hematuria. SKIN: Denies rash or itching.l MUSCULOSKELETAL: Denies back pain, joint pain, or myalgia. NEUROLOGIC: Denies headache, numbness, or weakness. PSYCHIATRIC: Denies anxiety or depression. All systems reviewed & are unremarkable except as noted in HPI and below PMFSH Past Medical History Medical History Chronic neck pain CKD (chronic kidney disease) stage 3, GFR 30-59 ml/min Essential (primary) hypertension History of ischemic vertebrobasilar artery thalamic stroke (~12/2019) Obesity Osteoarthritis Postoperative pulmonary thromboembolism (~09/2023) Post left knee replacement on Xarelto for 6 months. Vitamin D deficiency Surgical History Surgical History History of hernia surgery (~1999) 2000 right inguinal hernia repair History of left knee replacement (~08/06/22) [place] teeth extracted age mid 20's Family History Family History Father Hypertension Mother Hypertension COPD (chronic obstructive pulmonary disease) Social History Social History Smoking status: Current some day smoker Second hand tobacco smoke exposure: Yes (OCCASIONALLY WHEN OUT WITH FRIENDS) Additional smoking assessment comments: PT DENIES ALL FORMS OF TOBACCO USE Alcohol intake: current Drinks per week: 6 Alcohol use details: consumes 3/4 beers, twice a week Substance use: never Substance use type: does not use Lack of Transportation: No Lack of Food: Never True Current Housing: I Have Housing Concerned About Future Housing: No Difficulty Paying Gas/Electric Bills: No Difficulty Paying for Meds: No Currently Unemployed: No Education: Trade/Vocational Certificate Difficulty w/ Childcare or Family Care: No Living arrangements: with family Occupation/Education: occupation Gender identi
== END 2024-03-16 19:52 | disposition home or self-care (01) ==
PROVIDERS: Emergency Provider Registered Nurse; PCP Family Medicine
DX: K64.8 Other hemorrhoids (principal); K92.1 Melena; I12.9 Hypertensive chronic kidney disease with stage 1 through stage 4 chronic kidney disease, or unspecified chronic kidney disease; N18.30 Chronic kidney disease, stage 3 unspecified; E66.9 Obesity, unspecified; Z68.34 Body mass index [BMI] 34.0-34.9, adult; M19.90 Unspecified osteoarthritis, unspecified site; E55.9 Vitamin D deficiency, unspecified; Z86.73 Personal history of transient ischemic attack (TIA), and cerebral infarction without residual deficits; Z86.718 Personal history of other venous thrombosis and embolism; Z96.652 Presence of left artificial knee joint
CPT/HCPCS: 99213; G0463

== ENCOUNTER 2024-03-19 09:06 | Outpatient (CLI) | payer BC, SELFPAY ==
--- NOTE | ~2024-03-19 | CT_ITS ---
Non-contrast CT scan of the Abdomen and Pelvis Clinical indication: Melena Technique: 2.5 mm axial scans were obtained through the abdomen and pelvis without intravenous or or al contrast. Dose reduction technique was used on this scan by utilizing automated exposure control a nd iterative reconstruction technique. The dose-length product (DLP) was 1177.20 mGy-cm. Findings: Images through the lung bases reveal no abnormalities. There is no evidence of renal or ureteral calculi. The kidneys and the ureters are nondilated. The liver, spleen, pancreas, gallbladder, and adrenals appear normal. There is no aortic aneurysm. There is no evidence of bowel obstruction. Sigmoid diverticulosis noted. Images through the pelvis were performed. There is no evidence of ascites or lymphadenopathy. Urinary bladder unremarkable. No pelvic mass seen. No ascites. Moderate to large fat-containing left inguina l hernia present. Impression: Sigmoid diverticulosis. No evidence for acute diverticular disease. Moderate to large fat-containing left inguinal hernia. Reviewed, dictated and finalized at [facility]. Impression: Sigmoid diverticulosis. No evidence for acute diverticular disease. Moderate to large fat-containing left inguinal hernia.
== END 2024-03-19 09:07 ==
PROVIDERS: PCP Family Medicine; Visit Provider Nurse Practitioner
DX: K92.1 Melena (principal); K57.90 Diverticulosis of intestine, part unspecified, without perforation or abscess without bleeding; K40.90 Unilateral inguinal hernia, without obstruction or gangrene, not specified as recurrent
CPT/HCPCS: 74176

== ENCOUNTER 2024-04-07 01:13 | Day surgery (SDC) | payer BC, SELFPAY ==
[2024-04-01 08:55] VITALS: BMI 34.7
[2024-04-07 06:53] VITALS: BP 146/91; PULSE 83; RESP 18; TEMP 36.4; O2SAT 97
[2024-04-07] MEDS: LACTATED RINGERS 1,000 ML 150 ML IV CONT (07:02)
--- NOTE | 2024-04-07 07:38 | WPDANESEPPF ---
Anes - Initial Pre Proc Eval Procedure: Operation Date: 04/07/24 08:00 Proposed Procedures p Colonoscopy - Rosendo Hedrick MD Date/Time: 04/07/24 07:38 Surgeon: Rosendo Hedrick MD Pre Op Diagnosis: rectal bleed Patient Data Age: 58 Gender: M Height: 1.8 m Weight: 113.5 kg Last Vital Signs Temp 97.6 F 04/07/24 06:53 Pulse 83 04/07/24 06:53 Resp 18 04/07/24 06:53 BP 146/91 H 04/07/24 06:53 Pulse Ox 97 04/07/24 06:53 O2 Del Method Room Air 04/07/24 06:53 Allergies Allergy/AdvReac Type Severity Reaction Status Date / Time No Known Allergies Allergy Verified 04/07/24 06:51 Home Medications Medication Instructions Recorded Confirmed Type amlodipine 10 mg tablet 10 mg PO DAILY #90 tabs 09/08/23 04/01/24 Rx cholecalciferol (vitamin D3) 125 125 mcg PO DAILY 09/08/23 04/01/24 History mcg (5,000 unit) tablet losartan 100 1 tablet PO DAILY #90 tabs 03/08/24 04/01/24 Rx mg-hydrochlorothiazide 25 mg tablet potassium chloride 10 mEq 10 meq PO DAILY #90 tabs 03/08/24 04/01/24 Rx tablet,extended release hydrocortisone acetate 25 mg 25 mg RECTAL BID #12 ea 03/16/24 04/01/24 Rx rectal suppository (Anusol-HC) aspirin 325 mg tablet 325 mg PO DAILY 04/01/24 04/01/24 History Patient hx anesthesia problems: none Family hx anesthesia problems: none Results Review: All pre-operative results and documents have been reviewed as part of the pre-operative evaluation. [facility] Past Medical History Medical History (Updated 04/07/24 @ 08:08 by Rosendo Hedrick MD) Chronic neck pain CKD (chronic kidney disease) stage 3, GFR 30-59 ml/min Essential (primary) hypertension History of ischemic vertebrobasilar artery thalamic stroke (~12/2019) Obesity Osteoarthritis Postoperative pulmonary thromboembolism (~09/2023) Post left knee replacement on Xarelto for 6 months. Rectal bleeding Vitamin D deficiency Surgical History Surgical History History of hernia surgery (~1999) 2000 right inguinal hernia repair History of left knee replacement (~08/06/22) [place] teeth extracted age mid 20's Family History Family History Father Hypertension Mother Hypertension COPD (chronic obstructive pulmonary disease) Social History Social History Smoking status: Never smoker Second hand tobacco smoke exposure: Yes (OCCASIONALLY WHEN OUT WITH FRIENDS) Additional smoking assessment comments: PT DENIES ALL FORMS OF TOBACCO USE Alcohol intake: current Drinks per week: 6 Alcohol use details: 3-4 BEERS TWICE A WEEK Substance use: never Substance use type: does not use Lack of Transportation: No Lack of Food: Never True Current Housing: I Have Housing Concerned About Future Housing: No Difficulty Paying Gas/Electric Bills: No Difficulty Paying for Meds: No Currently Unemployed: No Education: Trade/Vocational Certificate Difficulty w/ Childcare or Family Care: No Living arrangements: alone Occupation/Education: occupation Gender identity (if verbalized by the patient): Male Sexual Orientation (if Verbalized by the Patient): Straight or Heterosexual Spiritual care concerns: No Agree to blood products: Yes Anes - Eval Final PreProcedure Day of Procedure 04/07/24 07:38 Patient weight: obese Heart: regular rate and rhythm Lungs: clear to auscultation Airway: Mallampati scale class II Neurological: alert and oriented Last oral intake: >/= 8 hours ASA classification: III Emergent: no Anesthetic plan: proceed Anesthesia type and monitoring: general GIVS and standard monitoring Results Review: All pre-operative results and documents have been reviewed as part of the pre-operative evaluation. Informed Consent: The patient's anesthetic plan and its
--- NOTE | 2024-04-07 08:07 | PM.HPGS ---
History of Present Illness History of Present Illness Consent: Risks, benefits, and alternatives have been discussed and questions answered. Patient agrees to proceed with procedure. Chief complaint: rectal bleed Narrative: Demetris Moore is a 58 year old male with rectal bleeding, CT scan showed diverticulosis, last colonoscopy 6 years ago Review of Systems Review of Systems: All systems reviewed & are unremarkable except as noted in HPI and below PMFSH Past Medical History Medical History (Updated 04/07/24 @ 08:08 by Rosendo Hedrick MD) Chronic neck pain CKD (chronic kidney disease) stage 3, GFR 30-59 ml/min Essential (primary) hypertension History of ischemic vertebrobasilar artery thalamic stroke (~12/2019) Obesity Osteoarthritis Postoperative pulmonary thromboembolism (~09/2023) Post left knee replacement on Xarelto for 6 months. Rectal bleeding Vitamin D deficiency Surgical History Surgical History History of hernia surgery (~1999) 2000 right inguinal hernia repair History of left knee replacement (~08/06/22) [place] teeth extracted age mid 20's Family History Family History Father Hypertension Mother Hypertension COPD (chronic obstructive pulmonary disease) Social History Social History Smoking status: Never smoker Second hand tobacco smoke exposure: Yes (OCCASIONALLY WHEN OUT WITH FRIENDS) Additional smoking assessment comments: PT DENIES ALL FORMS OF TOBACCO USE Alcohol intake: current Drinks per week: 6 Alcohol use details: 3-4 BEERS TWICE A WEEK Substance use: never Substance use type: does not use Lack of Transportation: No Lack of Food: Never True Current Housing: I Have Housing Concerned About Future Housing: No Difficulty Paying Gas/Electric Bills: No Difficulty Paying for Meds: No Currently Unemployed: No Education: Trade/Vocational Certificate Difficulty w/ Childcare or Family Care: No Living arrangements: alone Occupation/Education: occupation Gender identity (if verbalized by the patient): Male Sexual Orientation (if Verbalized by the Patient): Straight or Heterosexual Spiritual care concerns: No Agree to blood products: Yes Meds Home Medications and Allergies Home Medications Medication Instructions Recorded Confirmed Type amlodipine 10 mg tablet 10 mg PO DAILY #90 tabs 09/08/23 04/01/24 Rx cholecalciferol (vitamin D3) 125 125 mcg PO DAILY 09/08/23 04/01/24 History mcg (5,000 unit) tablet losartan 100 1 tablet PO DAILY #90 tabs 03/08/24 04/01/24 Rx mg-hydrochlorothiazide 25 mg tablet potassium chloride 10 mEq 10 meq PO DAILY #90 tabs 03/08/24 04/01/24 Rx tablet,extended release hydrocortisone acetate 25 mg 25 mg RECTAL BID #12 ea 03/16/24 04/01/24 Rx rectal suppository (Anusol-HC) aspirin 325 mg tablet 325 mg PO DAILY 04/01/24 04/01/24 History Allergies Allergy/AdvReac Type Severity Reaction Status Date / Time No Known Allergies Allergy Verified 04/07/24 06:51 Vital Signs Vital Signs - 24 hr 04/07/24 06:53 Temperature 97.6 F Pulse Rate 83 Respiratory Rate 18 Blood Pressure 146/91 H Pulse Oximetry 97 Oxygen Delivery Room Air Exam Const: General: comfortable and no acute distress HENMT: Face/Nose/Sinus: Normal nares present Eyes: General: appearance normal, both eyes and all related structures Neck: Neck: no JVD Resp: Auscultation: clear to auscultation bilaterally Cardio: Rate: regular rate Rhythm: regular rhythm GI: Inspection: non-distended GI Palp: Yes Soft to palpation Skin: General skin exam: normal color Neuro: General: gait normal Speech: normal speech Extrem: General: normal to inspection Psych: Mental Status: mental status grossly normal Assessment and Plan Assessment and p
[2024-04-07 08:34] VITALS: BP 119/77; PULSE 63; RESP 19; O2SAT 96
[2024-04-07 08:44] VITALS: BP 126/80; PULSE 65; RESP 21; O2SAT 98
[2024-04-07 08:54] VITALS: BP 134/88; PULSE 62; RESP 14; O2SAT 98
== END 2024-04-07 08:57 | disposition home or self-care (01) ==
PROVIDERS: PCP Family Medicine; Referring Provider Nurse Practitioner; Visit Provider Internal Medicine Gastroenterology
PROC: 0DJD8ZZ Inspection of Lower Intestinal Tract, Via Natural or Artificial Opening Endoscopic (ICD-10-PCS; CPT 45378; principal; 2024-04-07 08:00)
DX: D12.3 Benign neoplasm of transverse colon (principal); D12.0 Benign neoplasm of cecum; D12.2 Benign neoplasm of ascending colon; K57.30 Diverticulosis of large intestine without perforation or abscess without bleeding; K64.8 Other hemorrhoids; I12.9 Hypertensive chronic kidney disease with stage 1 through stage 4 chronic kidney disease, or unspecified chronic kidney disease; N18.30 Chronic kidney disease, stage 3 unspecified; E55.9 Vitamin D deficiency, unspecified; Z86.73 Personal history of transient ischemic attack (TIA), and cerebral infarction without residual deficits; E66.9 Obesity, unspecified; Z68.34 Body mass index [BMI] 34.0-34.9, adult
CPT/HCPCS: 45385; 88305; J2704; J7120

== ENCOUNTER 2024-06-30 16:34 | Outpatient (CLI) | payer BC, SELFPAY ==
--- NOTE | ~2024-06-30 | XR_ITS ---
EXAMINATION: XR knee LT 3V DATE: 06/30/2024 16:52 INDICATION: Presence of left artificial knee joint. TECHNIQUE: 2 views of left knee including standing views were obtained. COMPARISON: Left knee radiographs 08/06/2023 FINDINGS: There is a total left knee arthroplasty with patellar resurfacing in near-anatomic alignmen t. No fracture. No periprosthetic lucency to suggest loosening or infection. No knee joint effusion. IMPRESSION: 1. Total left knee arthroplasty in near-anatomic alignment. Reviewed, dictated and finalized at location A.
== END 2024-06-30 16:35 | disposition home or self-care (01) ==
LOC: ANHIMG 16:38
PROVIDERS: PCP Family Medicine; Visit Provider Orthopaedic Surgery
DX: Z96.652 Presence of left artificial knee joint (principal); Z09 Encounter for follow-up examination after completed treatment for conditions other than malignant neoplasm
CPT/HCPCS: 73562

== ENCOUNTER 2024-07-09 17:09 | Outpatient (CLI) | payer BC, SELFPAY ==
--- NOTE | ~2024-07-09 | US_ITS ---
EXAMINATION: US venous doppler [facility] DATE: 07/09/2024 17:30 INDICATION: Left lower limb swelling. TECHNIQUE: Grayscale ultrasound images without and with compression and Doppler ultrasound images of the left lower extremity veins were obtained. COMPARISON: Ultrasound 09/09/2022 FINDINGS: The visualized portions of left common femoral vein, profunda (deep) femoral vein, femoral vein, popl iteal vein, peroneal veins, posterior tibial veins, and greater saphenous vein outflow are patent. IMPRESSION: 1. No deep venous thrombosis. Reviewed, dictated and finalized at location A.
== END 2024-07-09 17:10 | disposition home or self-care (01) ==
PROVIDERS: PCP Family Medicine; Visit Provider Orthopaedic Surgery
DX: R60.0 Localized edema (principal)
CPT/HCPCS: 93971

== ENCOUNTER 2025-01-31 15:30 | Outpatient (RCR) | payer BC, SELFPAY ==
--- NOTE | 2024-12-06 15:37 | OPREHPOC ---
Outpatient Therapy Plan of Care This is a Multidisciplinary Plan of Care that may contain components documented by all disciplines (PT, OT, and ST.) PT Problem 1 PT Problem #1 Knowledge Deficit PT Goal 1 Goal / Goal Update 1. Pt to be IND with issued HEP Target Visit 8 PT Problem 2 PT Problem #2 Pain PT Goal 1 Goal / Goal Update 1. Pt to report shoulder pain no greater than 3/10 in the last week. 2. Pt to report no more than 20% disability on the quick DASH 3. Pt to report no increase in pain with active shoulder ROM. Target Visit 8 PT Problem 3 PT Problem #3 Impaired Range of Motion PT Goal 1 Goal / Goal Update 1. Pt to improve active shoulder abduction ROM to 150 deg without an increase in pain. Target Visit 8
--- NOTE | 2024-12-06 15:37 | PTOPEVAL1 ---
Assessment and note entered by Jessee Dumont, PT, DPT Evaluation Information Assessment Status Evaluation Diagnosis R shoulder pain ICD-10 Condition Codes (PT) Pain in right shoulder M25.511 Subjective Information Pt reports R shoulder and bicep pain for the last 1-2 years. 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 He states the bicep pain is new in the last 6 months. Reported Pain Level Pain Score 1: Self Report Assessment PT Clinical Summary Pt presents to therapy today for his initial evaluation with a diagnosis of R shoulder pain. Today he demonstrates s/s consistent with shoulder impingement syndrome. He has a slight decreased in active shoulder ROM of his R shoulder when compared to his L and pain with resisted ROM. He has forward and rounded shoulders lizbeth. Skilled therapy services are indicated to improve ROM, pain reports, scapular stability, and to return to PLOF. Plan of Care PT Services Indicated Yes Treatment Frequency and 2x/wk for 8 visits Duration These treatments will address the objective and functional deficits as defined above. The patient will be advanced safely and appropriately in order for the patient to progress towards his/her prior level of function. Additional exercises will be introduced and as well as a comprehensive home exercise program upon discharge, if needed, ?to ensure carryover of functional gains achieved in the clinic. This treatment plan has been reviewed and agreement upon by the patient.
--- NOTE | 2025-01-05 16:17 | OPREHPOC ---
Outpatient Therapy Plan of Care This is a Multidisciplinary Plan of Care that may contain components documented by all disciplines (PT, OT, and ST.) PT Problem 1 PT Problem #1 Knowledge Deficit PT Goal 1 Goal / Goal Update 1. Pt to be IND with issued HEP 01-05-25 progress goal met; continue to progress HEP and education Target Visit 13 PT Problem 2 PT Problem #2 Pain PT Goal 1 Goal / Goal Update 1. Pt to report shoulder pain no greater than 3/10 in the last week. 2. Pt to report no more than 20% disability on the quick DASH 3. Pt to report no increase in pain with active shoulder ROM. 3-03-27 progress goals not met continue towards goals Target Visit 13 PT Problem 3 PT Problem #3 Impaired Range of Motion PT Goal 1 Goal / Goal Update 1. Pt to improve active shoulder abduction ROM to 150 deg without an increase in pain. 01-05-25 progress goal not met continue towards goal ADD *2: IR palm to above waist with out pain increase Target Visit 13
--- NOTE | 2025-01-05 16:17 | PTOPPROG ---
Assessment and note entered by Arleen Medel, PT Assessment Status Progress Diagnosis R shoulder pain ICD-10 Condition Codes (PT) Pain in right shoulder M25.511 Subjective Information shoulder is a little better, still hurts when lifting up; at work, can move with arm at my side and not hurt his shoulder too bad; avoid lifting my arm up at work; the exercises help some; want to continue therapy to see if it will help some more; Assessment PT Clinical Summary Darius has received 7 PT sessions. Compared to the initial evaluation: pain from to ; self assessment with Quick DASH rating from 36 to 38% limitation in activity level he continues to work, with keeping his arm at his side, and avoiding lifting his arm up; R shoulder active ROM: flexion 145', abduction 145'; IR- reaching behind his back, palm to waist; ER- reaching to back of head. Pain increase most with IR motion and some pain with abduction. Decreased strength of R shoulder due to pain. The goals were partially met. Continue PT treatment. Plan of Care Interventions Electrical Stimulation,Hot Pack/Cold Pack,Manual Therapy,Neuro Re-education,Patient/Caregiver Education,Therapeutic Activities,Therapeutic Exercise,Ultrasound,Other Other Interventions taping PT Services Indicated Yes Treatment Frequency and 1-2x/wk for 6 visits Duration These treatments will address the objective and functional deficits as defined above. The patient will be advanced safely and appropriately in order for the patient to progress towards his/her prior level of function. Additional exercises will be introduced and as well as a comprehensive home exercise program upon discharge, if needed, ?to ensure carryover of functional gains achieved in the clinic. This treatment plan has been reviewed and agreement upon by the patient.
--- NOTE | 2025-01-31 16:09 | PTOPDC ---
Assessment and note entered by Arleen Medel, PT Assessment Status Discharge Diagnosis R shoulder pain ICD-10 Condition Codes (PT) Pain in right shoulder M25.511 Subjective Information shoulder is little better, but still hurts; can do everything at work and home with some pain; have been doing the exercises and going to the gym for exercises; have a stim unit at home, but not sure where it is; continue to work, 8-10 hour shifts, usually 56 hours/week. Reported Pain Level Pain Score Self Report Additional Pain Score Comments pain range in the past week 0-6/10; increase pain: raising arm up and working decrease pain; rest arm, sit in hot tub with jets on shoulder Assessment PT Clinical Summary Darius has received a total of 13 PT sessions. Compared to the last assessment: pain from 1-7/10 to 0-6/10; self assessment with Quick DASH rating from 38% to 30% limitation in activity level; increased R shoulder active flexion, abduction and IR motions; has pain with abduction with painful arc; increase strength of R shoulder but limited due to pain; Education completed for HEP, pain management and posture of shoulder. He is able to perform all of his home and work tasks, with increase pain. The goals were partially met. Discharge PT. He is to continue with his HEP. Plan of Care PT Services Indicated No
== END 2025-02-01 08:26 | disposition home or self-care (01) ==
LOC: ANHPT 15:30
PROVIDERS: PCP Family Medicine; Visit Provider Nurse Practitioner Family
DX: M25.511 Pain in right shoulder (principal)
CPT/HCPCS: 97014; 97110; 97140; 97161; 97530; G0283